=== PATIENT | female | born 1935 | race Caucasian/White ===

== ENCOUNTER → 2020-10-02 | Outpatient (CLI) | payer MEDICARE ==
[2020-10-02 11:20] LABS: BASO % 1 % (0-3); EOS # 0.6 x10^3/uL (0.0-0.7); EOS % 9 % (0-3); HEMATOCRIT 29.3 % (36.0-47.0); HEMOGLOBIN 9.7 g/dL (12.0-15.5); LYMPH # 0.4 x10^3/uL (1.0-4.8); LYMPH % 6 % (24-48); MEAN CORPUSCULAR HEMOGLOBIN 29 pg (25-35); MEAN CORPUSCULAR HGB CONC 33 g/dL (31-37); MEAN CORPUSCULAR VOLUME 89 fL (79-100); MONO # 0.5 x10^3/uL (0.0-1.1); MONO % 7 % (0-9); NEUT # 5.8 x10^3/uL (1.8-7.7); NEUT % 78 % (31-73); PLATELET COUNT 262 x10^3/uL (140-400); RED BLOOD COUNT 3.29 x10^6/uL (3.50-5.40); RED CELL DISTRIBUTION WIDTH 13.9 % (11.5-14.5); WHITE BLOOD COUNT 7.4 x10^3/uL (4.0-11.0)
[2020-10-02 11:31] LABS: CALCIUM 9.7 mg/dL (8.5-10.1); CREATININE 1.3 mg/dL (0.6-1.0); POTASSIUM 4.8 mmol/L (3.5-5.1)
== END ==
LOC: SPEC 10:50
PROVIDERS: ATTEND Family Medicine
DX: G20 Parkinson's disease (principal); I11.0 Hypertensive heart disease with heart failure; I50.9 Heart failure, unspecified
CPT/HCPCS: 36415; 80048; 85025

== ENCOUNTER → 2020-10-31 | Outpatient (CLI) | payer MEDICARE ==
[2020-10-31 13:24] LABS: BILIRUBIN,URINE NEGATIVE (NEG); CLARITY,URINE CLEAR; COLOR,URINE YELLOW; NITRITE,URINE NEGATIVE (NEG); PH,URINE 5.5 (<5.0-8.0); PROTEIN,URINE NEGATIVE (NEG-TRACE); UROBILINOGEN,URINE 0.2 mg/dL (0.2 mg/dL)
[2020-10-31 13:28] LABS: HYALINE CASTS, URINE FEW /HPF
[2020-10-31 13:29] LABS: BACTERIA,URINE 0 /HPF (0-FEW); WBC,URINE OCC /HPF (0-4)
== END ==
LOC: SPEC 13:04
PROVIDERS: ATTEND Family Medicine
DX: R41.0 Disorientation, unspecified (principal)
CPT/HCPCS: 81001

== ENCOUNTER → 2020-11-24 | Outpatient (CLI) | payer MEDICARE ==
[2020-11-24 08:34] LABS: BASO % 1 % (0-3); EOS # 0.3 x10^3/uL (0.0-0.7); EOS % 6 % (0-3); HEMATOCRIT 33.7 % (36.0-47.0); HEMOGLOBIN 11.2 g/dL (12.0-15.5); LYMPH # 0.4 x10^3/uL (1.0-4.8); LYMPH % 7 % (24-48); MEAN CORPUSCULAR HEMOGLOBIN 30 pg (25-35); MEAN CORPUSCULAR HGB CONC 33 g/dL (31-37); MEAN CORPUSCULAR VOLUME 89 fL (79-100); MONO # 0.6 x10^3/uL (0.0-1.1); MONO % 12 % (0-9); NEUT # 4.1 x10^3/uL (1.8-7.7); NEUT % 75 % (31-73); PLATELET COUNT 107 x10^3/uL (140-400); RED BLOOD COUNT 3.79 x10^6/uL (3.50-5.40); RED CELL DISTRIBUTION WIDTH 15.3 % (11.5-14.5); WHITE BLOOD COUNT 5.4 x10^3/uL (4.0-11.0)
[2020-11-24 08:42] LABS: CALCIUM 8.9 mg/dL (8.5-10.1); CREATININE 1.4 mg/dL (0.6-1.0); GFR 35.8; POTASSIUM 4.9 mmol/L (3.5-5.1)
== END ==
LOC: SPEC 08:21
PROVIDERS: ATTEND Family Medicine
DX: N18.30 Chronic kidney disease, stage 3 unspecified (principal); I10 Essential (primary) hypertension
CPT/HCPCS: 36415; 80048; 85025

== ENCOUNTER 2020-12-12 07:40 | Emergency (ER) | payer MEDICARE ==
[~2020-12-12] VITALS: Ht 162.6 cm; Wt 54.5 kg
--- NOTE | 2020-12-12 07:52 | PHYS DOC ---
General Adult EDM: Chief Complaint: MECHANICAL FALL HPI: HPI: Patient is a 85 year old female who [facility] after [facility] was found [facility] the [facility]. Nursing report that patient try to get out of her bed, was walking to the bathroom when she tripped and fell backward. Patient could not get up, complain of neck pain, back pain. Patient denies any chest pain, no abdominal pain, no nausea vomiting. Patient denies any extremity pain, no pelvic pain, no hip pain. Review of Systems: Review of Systems: Constitutional: Denies fever or chills. [] Eyes: Denies change in visual acuity. [] HENT: Denies nasal congestion or sore throat. [] Respiratory: Denies cough or shortness of breath. [] Cardiovascular: Denies chest pain or edema. [] GI: Denies abdominal pain, nausea, vomiting, bloody stools or diarrhea. [] : Denies dysuria. [] Musculoskeletal: Positive for back pain, no joint pain. Integument: Denies rash. [] Neurologic: Denies headache, focal weakness or sensory changes. [] Endocrine: Denies polyuria or polydipsia. [] Lymphatic: Denies swollen glands. [] Psychiatric: Denies depression or anxiety. [] Heart Score: C/O Chest Pain: N/A Risk Factors: Risk Factors: DM, Current or recent (<one month) smoker, HTN, HLP, family history of CAD, obesity. Risk Scores: Score 0 - 3: 2.5% MACE over next 6 weeks - Discharge Home Score 4 - 6: 20.3% MACE over next 6 weeks - Admit for Clinical Observation Score 7 - 10: 72.7% MACE over next 6 weeks - Early Invasive Strategies Physical Exam: PE: Constitutional: Well developed, well nourished, no acute distress, non-toxic appearance. [] HENT: Normocephalic, atraumatic, bilateral external ears normal, oropharynx moist, no oral exudates, nose normal. [] Eyes: PERRLA, EOMI, conjunctiva normal, no discharge. [] Neck: Normal range of motion, no tenderness, supple, no stridor. [] Cardiovascular:Heart rate regular rhythm, no murmur [] Lungs & Thorax: Bilateral breath sounds clear to auscultation [] Abdomen: Bowel sounds normal, soft, no tenderness, no masses, no pulsatile masses. [] Skin: Warm, dry, no erythema, no rash. [] Back: No tenderness, no CVA tenderness. No contusion to the back. Extremities: No tenderness, no cyanosis, no clubbing, ROM intact, no edema. Pelvis stable, nontender to palpation. Neurologic: Alert and oriented X 3, normal motor function, normal sensory function, no focal deficits noted. [] Psychologic: Affect normal, judgement normal, mood normal. [] EKG: EKG: [] Radiology/Procedures: Radiology/Procedures: [][facility] [address] [place], [place] [id number] IMAGING REPORT Signed PATIENT: VICTORIANO RG ACCOUNT: [id number] : 1935 LOCATION: ER AGE: 85 SEX: F EXAM STATUS: REG ER ORD. PHYSICIAN: MENDEZ MAHMOOD DO REASON: fell on buttock, suspected sacrum fracture PROCEDURE: CT PELVIS WO CONTRAST PQRS Compliance Statement: One or more of the following individualized dose reduction techniques were utilized for this examination: 1. Automated exposure control 2. Adjustment of the mA and/or kV according to patient size 3. Use of iterative reconstruction technique CT PELVIS WO Clinical Indication: Reason: fell on buttock, suspected sacrum fracture. Abnormal radiograph. Comparison: AP pelvis, earlier same day. TECHNIQUE: Helical CT imaging of the pelvis is performed without IV contrast. Findings: Diffuse demineralization decreases sensitivity. No acute sacral fracture is identified. The sacral iliac joints are symmetric, air in the joints. No diastasis of symphysis pubis. The hip joints are intact, moderate arthropathy. Please refer to separately dictated CT lumbar spine report for additional findings. 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 Probable fibroid near the fundus measures on the order of 6.8 cm. Consider outpatient pelvic ultrasound. Urinary bladder is normal. Question periurethral collagen injections. The rectum is moderately distended with stool. No wall thickening is seen. No pelvic free fluid. IMPRESSION: No acute pelvic fracture. Electronically signed by: Lars Howell MD (12/12/2020 10:30 AM) [id number] DICTATED and SIGNED BY: LARS HOWELL MD DATE: 12/12/20 [id number] [facility] [address] [place] [address] IMAGING REPORT Signed PATIENT: VICTORIANO RG ACCOUNT: [id number] : 1935 LOCATION: ER AGE: 85 SEX: F EXAM STATUS: PRE ER ORD. PHYSICIAN: MENDEZ MAHMOOD DO REASON: fell, head injury, neck pain, back pain PROCEDURE: CT HEAD AND CERVICAL SPINE WO CT HEAD AND C-SPINE WO Date: 12/12/2020 7:57 AM Clinical Indication: fell, head injury, neck pain, back pain Comparison: None. Technique: 5 mm axial tomographic images were obtained of the head without contrast. These were viewed on brain and bone windows. Noncontrast CT of the c ervical spine was performed. Sagittal and coronal reformats were performed and evaluated. One or more of the following dose reduction techniques were utilized: Automated exposure control (AEC), Adjustment of mA and/or kV according to patient size, Use of iterative reconstruction technique such as ASiR, CT scan done according to ALARA and image gently/image wisely HEAD FINDINGS: Mild generalized cerebral and cerebellar volume loss. Mild nonspecific periventricular hypoattenuation, most commonly seen with chronic small vessel ischemic disease. No intra- or extra-axial mass or fluid collection. No acute hemorrhage. The ventricles are normal in size, shape, and morphology. The hollis-white matter junction is normal. The basilar cisterns are patent. The visualized paranasal sinuses are normal. The visualized portions of the orbits and globes are normal. Opacification of the right mastoid air cells. No aggressive osseous lesion or fracture. CERVICAL SPINE FINDINGS: The cervical spine is normally aligned. No acute fracture. No aggressive lytic or blastic osseous lesions. Moderate multilevel degenerative disc space height loss. Multilevel mild spinal canal stenosis secondary to disc protrusions and marginal osteophytes. Multilevel moderate to severe neuroforaminal narrowing secondary to uncovertebral arthrosis. Multilevel moderate to severe facet arthrosis. Right thyroid 1.2 cm nodule, not requiring further evaluation based on size criteria. No cervical lymphadenopathy. Bilateral carotid atherosclerosis. The visualized aerodigestive tract is normal. The visualized portions of the lungs are clear. IMPRESSION: 1. No acute intracranial process. 2. No acute cervical spine fracture. Electronically signed by: Malik Santiago MD (12/12/2020 8:31 AM) [id number] DICTATED and SIGNED BY: MALIK SANTIAGO MD DATE: 12/12/20 [id number] [facility] [address] [place] [address] IMAGING REPORT Signed PATIENT: VICTORIANO RG ACCOUNT: [id number] : 1935 LOCATION: ER AGE: 85 SEX: F EXAM STATUS: PRE ER ORD. PHYSICIAN: MENDEZ MAHMOOD DO REASON: fell, head injury, neck pain, back pain PROCEDURE: CT LUMBAR SPINE WO CONTRAST CT LUMBAR SPINE WO Date: 12/12/2020 7:57 AM Indication: fell, head injury, neck pain, back pain / Spl. Instructions: / History: Comparison: None. Technique: Helical CT images of the lumbar spine were obtained without contrast. Coronal and sagittal reformatted images were also performed. One or more of the following dose reduction techniques were utilized: Automated exposure control (AEC), Adjustment of mA and/or kV according to patient size, Use of iterative reconstruction technique such as ASiR, CT scan done according to ALARA and image gently/image wisely. Findings: 4 mm anterolisthesis of L3-4. A millimeter anterolisthesis at L4-5. No acute fracture. Vertebral body heights are maintained without compression deformity. No aggressive lytic or blastic osseous lesion. Severe multilevel degenerative disc space height loss. Multilevel spinal canal stenosis secondary to multilevel disc bulging and facet arthrosis, severe at L2- 3, L3-4, L4-5. Multilevel moderate to severe neuroforaminal narrowing. Multilevel severe facet arthrosis. Partially visualized enlarged polylobulatar pelvic mass. The visualized abdominal aorta is normal caliber. IMPRESSION: 1. No acute osseous abnormality of the lumbar spine. 2. Advanced lumbar spondylosis with multilevel severe spinal canal stenosis. 3. Partially visualized enlarged polylobular pelvic mass, incompletely characterized but may represent myomatous uterus. Consider comparison with prior outside imaging or follow-up pelvic ultrasound. Electronically signed by: Malik Santiago MD (12/12/2020 8:39 AM) [id number] DICTATED and SIGNED BY: MALIK SANTIAGO MD DATE: 12/12/20 [id number] [facility] [address] [place] [address] IMAGING REPORT Signed PATIENT: VICTORIANO RG ACCOUNT: [id number] : 1935 LOCATION: ER AGE: 85 SEX: F EXAM STATUS: PRE ER ORD. PHYSICIAN: MENDEZ MAHMOOD DO REASON: fell, head injury, neck pain, back pain PROCEDURE: CT THORACIC SPINE WO CONTRAST CT THORACIC SPINE WO 12/12/2020 7:57 AM Indication: fell, head injury, neck pain, back pain / Spl. Instructions: / History: Comparison: None. Technique: CT imaging of the thoracic spine was performed without contrast. Coronal and sagittal reformatted images were performed. One or more of the following dose reduction techniques were utilized: Automated exposure control (AEC), Adjustment of mA and/or kV according to patient size, Use of iterative reconstruction technique such as ASiR, CT scan done according to ALARA and image gently/image wisely. Findings: The thoracic spine is normally aligned. No acute fracture. Vertebral body heights are maintained without compression deformity. Multilevel moderate degenerative disc height loss. Multilevel predominately mild spinal canal stenosis. No high-grade neural foraminal narrowing. No aggressive lytic or blastic osseous lesion. The visualized lungs are clear. No pleural effusion. The visualized thoracic aorta is normal caliber. Coronary artery atherosclerotic disease. Impression: No acute osseous abnormality of the thoracic spine. Electronically signed by: Malik Santiago MD (12/12/2020 8:41 AM) [id number] DICTATED and SIGNED BY: MALIK SANTIAGO MD DATE: 12/12/20 [id number] Course & Med Decision Making: Course & Med Decision Making Pertinent Labs and Imaging studies reviewed. (See chart for details) Patient is a 85-year-old female who was [facility]. CT scan her head, C-spine, thoracic and lumbar spine, pelvic did not show any acute problem. [facility]. Dragon Disclaimer: Dragon Disclaimer: This electronic medical record was generated, in whole or in part, using a voice recognition dictation system. Departure Departure Impression: Primary Impression: Back pain Additional Impression: Fall Disposition: 03 [facility]ILITY Condition: STABLE Referrals: WILEY RIOJAS MD (PCP) Patient Instructions: Back Pain, Adult, Fall Prevention and Home Safety MENDEZ MAHMOOD DO Dec 12, 2020 07:52
--- NOTE | 2020-12-12 08:10 | RAD ---
AP view of the pelvis Clinical indications: Fell on buttocks. Pain. FINDINGS: The hip joints are symmetric. There is a piece of cortical bone seen displaced superiorly f rom the upper right sacrum. This may represent a fracture. Therefore, recommend CT study of the pelvi s. No diastases is evident. No dislocation or lytic process is seen. IMPRESSION: Possible fracture of the upper right sacrum. Recommend CT study of the pelvis or further evaluation. Electronically signed by: Berto Leonardo MD (12/12/2020 8:08 AM) [id number]
--- NOTE | 2020-12-12 08:34 | RAD ---
CT HEAD AND C-SPINE WO Date: 12/12/2020 7:57 AM Clinical Indication: fell, head injury, neck pain, back pain Comparison: None. Technique: 5 mm axial tomographic images were obtained of the head without contrast. These were view ed on brain and bone windows. Noncontrast CT of the cervical spine was performed. Sagittal and jones l reformats were performed and evaluated. One or more of the following dose reduction techniques were utilized: Automated exposure control (AEC), Adjustment of mA and/or kV according to patient size, Us e of iterative reconstruction technique such as ASiR, CT scan done according to ALARA and image gentl y/image wisely HEAD FINDINGS: Mild generalized cerebral and cerebellar volume loss. Mild nonspecific periventricular hypoattenuatio n, most commonly seen with chronic small vessel ischemic disease. No intra- or extra-axial mass or fluid collection. No acute hemorrhage. The ventricles are normal in size, shape, and morphology. The hollis-white matter junction is normal. The basilar cisterns are paten t. The visualized paranasal sinuses are normal. The visualized portions of the orbits and globes are no rmal. Opacification of the right mastoid air cells. No aggressive osseous lesion or fracture. CERVICAL SPINE FINDINGS: The cervical spine is normally aligned. No acute fracture. No aggressive lytic or blastic osseous les ions. Moderate multilevel degenerative disc space height loss. Multilevel mild spinal canal stenosis second francisco javier to disc protrusions and marginal osteophytes. Multilevel moderate to severe neuroforaminal narrow ing secondary to uncovertebral arthrosis. Multilevel moderate to severe facet arthrosis. Right thyroid 1.2 cm nodule, not requiring further evaluation based on size criteria. No cervical lym phadenopathy. Bilateral carotid atherosclerosis. The visualized aerodigestive tract is normal. The visualized portions of the lungs are clear. IMPRESSION: 1. No acute intracranial process. 2. No acute cervical spine fracture. Electronically signed by: Jr Santiago MD (12/12/2020 8:31 AM) [id number]
--- NOTE | 2020-12-12 08:41 | RAD ---
CT LUMBAR SPINE WO Date: 12/12/2020 7:57 AM Indication: fell, head injury, neck pain, back pain / Spl. Instructions: / History: Comparison: None. Technique: Helical CT images of the lumbar spine were obtained without contrast. Coronal and sagitta l reformatted images were also performed. One or more of the following dose reduction techniques were utilized: Automated exposure control (AEC), Adjustment of mA and/or kV according to patient size, Us e of iterative reconstruction technique such as ASiR, CT scan done according to ALARA and image gentl y/image wisely. Findings: 4 mm anterolisthesis of L3-4. A millimeter anterolisthesis at L4-5. No acute fracture. Vertebral body heights are maintained without compression deformity. No aggressive lytic or blastic osseous lesion. Severe multilevel degenerative disc space height loss. Multilevel spinal canal stenosis secondary to multilevel disc bulging and facet arthrosis, severe at L2-3, L3-4, L4-5. Multilevel moderate to sever e neuroforaminal narrowing. Multilevel severe facet arthrosis. Partially visualized enlarged polylobulatar pelvic mass. The visualized abdominal aorta is normal cortney iber. IMPRESSION: 1. No acute osseous abnormality of the lumbar spine. 2. Advanced lumbar spondylosis with multilevel severe spinal canal stenosis. 3. Partially visualized enlarged polylobular pelvic mass, incompletely characterized but may represen t myomatous uterus. Consider comparison with prior outside imaging or follow-up pelvic ultrasound. Electronically signed by: Jr Santiago MD (12/12/2020 8:39 AM) [id number]
--- NOTE | 2020-12-12 08:44 | RAD ---
CT THORACIC SPINE WO 12/12/2020 7:57 AM Indication: fell, head injury, neck pain, back pain / Spl. Instructions: / History: Comparison: None. Technique: CT imaging of the thoracic spine was performed without contrast. Coronal and sagittal ref ormatted images were performed. One or more of the following dose reduction techniques were utilized: Automated exposure control (AEC), Adjustment of mA and/or kV according to patient size, Use of itera tive reconstruction technique such as ASiR, CT scan done according to ALARA and image gently/image wi sely. Findings: The thoracic spine is normally aligned. No acute fracture. Vertebral body heights are maintained with out compression deformity. Multilevel moderate degenerative disc height loss. Multilevel predominatel y mild spinal canal stenosis. No high-grade neural foraminal narrowing. No aggressive lytic or blasti c osseous lesion. The visualized lungs are clear. No pleural effusion. The visualized thoracic aorta is normal caliber. Coronary artery atherosclerotic disease. Impression: No acute osseous abnormality of the thoracic spine. Electronically signed by: Jr Santiago MD (12/12/2020 8:41 AM) [id number]
[2020-12-12 10:30] VITALS: BP 188/82
--- NOTE | 2020-12-12 10:32 | RAD ---
PQRS Compliance Statement: One or more of the following individualized dose reduction techniques were utilized for this examinat ion: 1. Automated exposure control 2. Adjustment of the mA and/or kV according to patient size 3. Use of iterative reconstruction technique CT PELVIS WO Clinical Indication: Reason: fell on buttock, suspected sacrum fracture. Abnormal radiograph. Comparison: AP pelvis, earlier same day. TECHNIQUE: Helical CT imaging of the pelvis is performed without IV contrast. Findings: Diffuse demineralization decreases sensitivity. No acute sacral fracture is identified. The sacral il iac joints are symmetric, air in the joints. No diastasis of symphysis pubis. The hip joints are inta ct, moderate arthropathy. Please refer to separately dictated CT lumbar spine report for additional f indings. 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 Probable fibroid near the fundus measures on the order of 6.8 cm. Consider outpatient pelvic ultrasound. Urinary bladder is normal. Question periurethral co llagen injections. The rectum is moderately distended with stool. No wall thickening is seen. No pelv ic free fluid. IMPRESSION: No acute pelvic fracture. Electronically signed by: Lars Howell MD (12/12/2020 10:30 AM) [id number]
== END 2020-12-12 11:21 | disposition home or self-care (01) ==
LOC: ER 07:40
DX: M54.9 Dorsalgia, unspecified (principal); M54.2 Cervicalgia; W01.0XXA Fall on same level from slipping, tripping and stumbling without subsequent striking against object, initial encounter; Y93.01 Activity, walking, marching and hiking; Y92.89 Other specified places as the place of occurrence of the external cause; Y99.8 Other external cause status
CPT/HCPCS: 70450; 72125; 72128; 72131; 72170; 72192; 99285-25

== ENCOUNTER → 2021-01-15 | Outpatient (CLI) | payer MEDICARE ==
[2021-01-15 18:02] LABS: BILIRUBIN,URINE NEGATIVE (NEG); CLARITY,URINE TURBID; COLOR,URINE YELLOW; NITRITE,URINE NEGATIVE (NEG); PROTEIN,URINE NEGATIVE (NEG-TRACE); UROBILINOGEN,URINE 0.2 mg/dL (0.2 mg/dL)
[2021-01-15 18:21] LABS: HYALINE CASTS, URINE MODERATE /HPF
[2021-01-15 18:24] LABS: BACTERIA,URINE 0 /HPF (0-FEW)
== END ==
LOC: SPEC 17:44
PROVIDERS: ATTEND Family Medicine
DX: R35.0 Frequency of micturition (principal); R41.0 Disorientation, unspecified
CPT/HCPCS: 81001

== ENCOUNTER → 2021-01-24 | Outpatient (CLI) | payer MEDICARE ==
[2021-01-24 14:08] LABS: CREATININE 1.5 mg/dL (0.6-1.0); GFR 33.1
[2021-01-26 14:27] LABS: ALBUM 3.6 g/dL (2.9-4.4); ALPHA 1 0.3 g/dL (0.0-0.4); ALPHA 2 0.8 g/dL (0.4-1.0); BETA 1.3 g/dL (0.7-1.3); SPEP AG RATIO 1.1 (0.7-1.7)
== END ==
LOC: SPEC 11:54
PROVIDERS: ATTEND Family Medicine
DX: I11.0 Hypertensive heart disease with heart failure (principal); I50.9 Heart failure, unspecified
CPT/HCPCS: 36415; 82306; 82565; 82607; 84165; 84520

== ENCOUNTER → 2021-03-23 | Outpatient (CLI) | payer MEDICARE ==
[2021-03-23 08:30] LABS: CALCIUM 9.6 mg/dL (8.5-10.1); CREATININE 1.4 mg/dL (0.6-1.0); GFR 35.8; POTASSIUM 4.6 mmol/L (3.5-5.1)
== END ==
LOC: ONCLAB 07:18
PROVIDERS: ATTEND Family Medicine
DX: N18.30 Chronic kidney disease, stage 3 unspecified (principal); L50.0 Allergic urticaria
CPT/HCPCS: 36415; 80048

== ENCOUNTER → 2021-08-08 | Outpatient (CLI) | payer MEDICARE | LOC: SPEC 08:17 | PROVIDERS: ATTEND Family Medicine | DX: I50.9 Heart failure, unspecified (principal); N18.30 Chronic kidney disease, stage 3 unspecified | CPT/HCPCS: 36415; 82607 ==

== ENCOUNTER → 2021-08-09 | Outpatient (CLI) | payer MEDICARE ==
[2021-08-09 09:08] LABS: BASO % 0 % (0-3); EOS # 0.4 x10^3/uL (0.0-0.7); EOS % 8 % (0-3); HEMATOCRIT 36.4 % (36.0-47.0); HEMOGLOBIN 11.6 g/dL (12.0-15.5); LYMPH # 0.5 x10^3/uL (1.0-4.8); LYMPH % 10 % (24-48); MEAN CORPUSCULAR HEMOGLOBIN 29 pg (25-35); MEAN CORPUSCULAR HGB CONC 32 g/dL (31-37); MEAN CORPUSCULAR VOLUME 91 fL (79-100); MONO # 0.5 x10^3/uL (0.0-1.1); MONO % 10 % (0-9); NEUT # 3.8 x10^3/uL (1.8-7.7); NEUT % 72 % (31-73); PLATELET COUNT 122 x10^3/uL (140-400); RED BLOOD COUNT 4.02 x10^6/uL (3.50-5.40); WHITE BLOOD COUNT 5.3 x10^3/uL (4.0-11.0)
[2021-08-09 09:25] LABS: CALCIUM 9.1 mg/dL (8.5-10.1); CREATININE 1.4 mg/dL (0.6-1.0); GFR 35.7; POTASSIUM 4.7 mmol/L (3.5-5.1)
== END ==
LOC: SPEC 05:19
PROVIDERS: ATTEND Family Medicine
DX: I10 Essential (primary) hypertension (principal)
CPT/HCPCS: 36415; 80048; 85025

== ENCOUNTER → 2021-08-11 | Outpatient (CLI) | payer MEDICARE | LOC: SPEC 10:19 | PROVIDERS: ATTEND Family Medicine | DX: I10 Essential (primary) hypertension (principal) | CPT/HCPCS: 87493 ==

== ENCOUNTER → 2021-08-13 | Outpatient (CLI) | payer MEDICARE | LOC: SPEC 11:47 | PROVIDERS: ATTEND Family Medicine | DX: L08.9 Local infection of the skin and subcutaneous tissue, unspecified (principal) | CPT/HCPCS: 87070 ==

== ENCOUNTER → 2021-08-21 | Outpatient (CLI) | payer MEDICARE ==
--- NOTE | 2021-08-21 16:52 | RAD ---
EXAM: RIGHT ELBOW 3 VIEWS. HISTORY: Right elbow pain, open wound. COMPARISON: None. FINDINGS: There is a soft tissue defect overlying the olecranon. There is a cortical erosion of the u nderlying bone consistent with acute osteomyelitis. There is a small joint effusion. No fractures are identified. Joint spaces and alignment are maintain ed. IMPRESSION: 1. Findings consistent with acute osteomyelitis along the olecranon. 2. Joint effusion. Electronically signed by: Ira Haley MD (08/21/2021 4:50 PM) [id number]
== END ==
LOC: RAD 11:21
PROVIDERS: ATTEND Nurse Practitioner Family
DX: S51.001A Unspecified open wound of right elbow, initial encounter (principal); M25.421 Effusion, right elbow; M86.9 Osteomyelitis, unspecified
CPT/HCPCS: 73080

== ENCOUNTER → 2021-08-21 | Outpatient (CLI) | payer MEDICARE ==
[~2021-08-21] MED LIST: ACET325T21 PO; APIX5TAB PO; BUSP5TAB PO; CALC600T23 PO; CARB1TAB22 PO; CEFTRIAXONE SODIUM IVP; CHOL10004 PO; DONE5TAB7 PO; LACT30003 PO; LATA2.5D2 OU; LIDO700A21 TP; MELA5TAB PO; MELO15TA23 PO; MIRA50TA3 PO; MULT-496 PO; SERT25TA PO
[2021-08-21 07:56] LABS: BASO % 1 % (0-3); EOS # 0.4 x10^3/uL (0.0-0.7); EOS % 5 % (0-3); HEMATOCRIT 35.2 % (36.0-47.0); HEMOGLOBIN 11.3 g/dL (12.0-15.5); LYMPH # 0.5 x10^3/uL (1.0-4.8); LYMPH % 8 % (24-48); MEAN CORPUSCULAR HEMOGLOBIN 29 pg (25-35); MEAN CORPUSCULAR HGB CONC 32 g/dL (31-37); MEAN CORPUSCULAR VOLUME 90 fL (79-100); MONO # 0.7 x10^3/uL (0.0-1.1); MONO % 10 % (0-9); NEUT # 5.5 x10^3/uL (1.8-7.7); NEUT % 77 % (31-73); PLATELET COUNT 168 x10^3/uL (140-400); RED BLOOD COUNT 3.92 x10^6/uL (3.50-5.40); RED CELL DISTRIBUTION WIDTH 14.8 % (11.5-14.5); WHITE BLOOD COUNT 7.2 x10^3/uL (4.0-11.0)
[2021-08-21 08:25] LABS: ALBUMIN 3.2 g/dL (3.4-5.0); ALBUMIN/GLOBULIN RATIO 0.8 (1.0-1.7); GFR 23.7; TOTAL BILIRUBIN 0.3 mg/dL (0.2-1.0); TOTAL PROTEIN 7.3 g/dL (6.4-8.2)
[2021-08-21 08:28] LABS: POTASSIUM 6.5 mmol/L (3.5-5.1)
== END ==
LOC: SPEC 01:56
PROVIDERS: ATTEND Family Medicine
DX: G30.9 Alzheimer's disease, unspecified (principal)
CPT/HCPCS: 36415; 80053; 85025; 85651

== ENCOUNTER → 2021-08-22 | Outpatient (CLI) | payer MEDICARE | LOC: SPEC 00:05 | PROVIDERS: ATTEND Family Medicine | DX: I10 Essential (primary) hypertension (principal) | CPT/HCPCS: 36415; 84132 ==

== ENCOUNTER 2021-08-25 07:19 | Inpatient (IN) | payer MEDICARE ==
[~2021-08-25] VITALS: Ht 165.1 cm; Wt 69.2 kg
[2021-08-25] MEDS ORDERED: cefTRIAXone IV Push 1 GM VIAL. IVP ONE (08:00)
[2021-08-25 08:48] LABS: BASO % 0 % (0-3); EOS # 0.5 x10^3/uL (0.0-0.7); EOS % 7 % (0-3); HEMATOCRIT 31.3 % (36.0-47.0); HEMOGLOBIN 10.3 g/dL (12.0-15.5); LYMPH # 0.3 x10^3/uL (1.0-4.8); LYMPH % 5 % (24-48); MEAN CORPUSCULAR HEMOGLOBIN 29 pg (25-35); MEAN CORPUSCULAR HGB CONC 33 g/dL (31-37); MEAN CORPUSCULAR VOLUME 89 fL (79-100); MONO # 0.6 x10^3/uL (0.0-1.1); MONO % 8 % (0-9); NEUT # 5.9 x10^3/uL (1.8-7.7); NEUT % 81 % (31-73); PLATELET COUNT 161 x10^3/uL (140-400); RED BLOOD COUNT 3.52 x10^6/uL (3.50-5.40); RED CELL DISTRIBUTION WIDTH 14.6 % (11.5-14.5); WHITE BLOOD COUNT 7.4 x10^3/uL (4.0-11.0)
[2021-08-25 08:50] LABS: BILIRUBIN,URINE NEGATIVE (NEG); CLARITY,URINE CLEAR; COLOR,URINE YELLOW; NITRITE,URINE NEGATIVE (NEG); PH,URINE 5.5 (<5.0-8.0); PROTEIN,URINE NEGATIVE (NEG-TRACE); UROBILINOGEN,URINE 0.2 mg/dL (0.2 mg/dL)
[2021-08-25 09:04] LABS: ALBUMIN 2.8 g/dL (3.4-5.0); ALBUMIN/GLOBULIN RATIO 0.8 (1.0-1.7); CALCIUM 8.6 mg/dL (8.5-10.1); CREATININE 1.4 mg/dL (0.6-1.0); GFR 35.7; TOTAL BILIRUBIN 0.2 mg/dL (0.2-1.0); TOTAL PROTEIN 6.5 g/dL (6.4-8.2)
[2021-08-25 09:07] LABS: BACTERIA,URINE 0 /HPF (0-FEW); WBC,URINE OCC /HPF (0-4)
[2021-08-25 09:10] LABS: POTASSIUM 6.3 mmol/L (3.5-5.1)
[2021-08-25] MEDS ORDERED: SODIUM BICARB ADULT 8.4% 50 MEQ/50 ML DISP.SYRIN. IV ONE (09:30)
[2021-08-25] MEDS ORDERED: INSULIN REGULAR 100 UNIT/ML 3ML VIAL. IV ONE (09:30)
[2021-08-25] MEDS ORDERED: DEXTROSE 50% 25 GM / 50ML DISP.SYRIN. IV ONE (09:30)
[2021-08-25] MEDS ORDERED: CALCIUM GLUCONATE 1,000 MG/10 ML VIAL. IVP ONE (09:30)
[2021-08-25] MEDS ORDERED: SODIUM POLYSTYRENE SULFON/SORB 15 GM/60 ML ORAL.SUSP. PO ONE (09:30)
--- NOTE | 2021-08-25 09:45 | PHYS DOC ---
Past Medical History Past Medical History: Anxiety, Arthritis, CHF, Depression, Hypertension, UTI Additional Past Medical Histor: OSTEOPORESIS, parkinsons,alzheimers, Past Surgical History: Other Additional Past Surgical Histo: UNKNOWN Smoking Status: Never Smoker Alcohol Use: None General Adult EDM: Chief Complaint: OTHER COMPLAINTS HPI: HPI: Patient is a 86 year old female who presents from [facility] facility with complaints of her left-sided PICC line no longer functioning. She has a PICC line for right olecranon osteomyelitis, and has been receiving c eftriaxone. Notes show that she has had hyperkalemia to 6.5, and OLGA to 2.0 on 08/21 laboratory check. Her Lasix were then held (assuming concern for overdiuresis), with a plan for recheck. Review of Systems: Review of Systems: Constitutional: Denies fever or chills. [] Eyes: Denies change in visual acuity. [] HENT: Denies nasal congestion or sore throat. [] Respiratory: Denies cough or shortness of breath. [] Cardiovascular: Denies chest pain or edema. [] GI: Denies abdominal pain, nausea, vomiting, bloody stools or diarrhea. [] : Denies dysuria. [] Musculoskeletal: Denies back pain or joint pain. [] Integument: Denies rash. [] Neurologic: Denies headache, focal weakness or sensory changes. [] Psychiatric: Denies depression or anxiety. [] Heart Score: C/O Chest Pain: No Current Medications: Current Medications Medications (Trade) Dose Ordered Sig/Zayda Start Time Stop Time Status Last Admin Dose Admin Calcium Gluconate (Calcium Gluconate) 1,000 mg 1X ONCE 08/25/21 09:30 08/25/21 09:31 DC Ceftriaxone Sodium (Rocephin) 1 gm 1X ONCE 08/25/21 08:00 08/25/21 08:01 DC 08/25/21 09:07 1 GM Dextrose (Dextrose 50%-Water Syringe) 25 gm 1X ONCE 08/25/21 09:30 08/25/21 09:31 DC Insulin Human Regular (HumuLIN R VIAL) 10 unit 1X ONCE 08/25/21 09:30 08/25/21 09:31 DC Sodium Polystyrene Sulfonate (Kayexalate) 30 gm 1X ONCE 08/25/21 09:30 08/25/21 09:31 DC Sodium Bicarbonate (Sodium Bicarb Adult 8.4% Syr) 50 meq 1X ONCE 08/25/21 09:30 08/25/21 09:31 DC Allergies: Allergies: Allergies Coded Allergies Type Severity Reaction Last Updated Verified I S O L A T I O N *CONTACT* Allergy Unknown 08/25/21 Yes Iodine and Iodide Containing Produc Allergy Unknown 08/25/21 Yes Physical Exam: PE: Constitutional: Well developed, well nourished, no acute distress, non-toxic appearance. [] HENT: Normocephalic, atraumatic, bilateral external ears normal, oropharynx moist, no oral exudates, nose normal. [] Eyes: PERRLA, EOMI, conjunctiva normal, no discharge. [] Neck: Normal range of motion, no tenderness, supple, no stridor. [] Cardiovascular:Heart rate regular rhythm, no murmur [] Lungs & Thorax: Bilateral breath sounds clear to auscultation [] Abdomen: Bowel sounds normal, soft, no tenderness, no masses, no pulsatile masses. [] Skin: Left upper extremity PICC line in place, bleeding present under the bandage. Does not flush. Extremities: No tenderness, no cyanosis, no clubbing, ROM intact, no edema. [] Neurologic: Alert and oriented X 3, normal motor function, normal sensory function, no focal deficits noted. [] Psychologic: Affect normal, judgement normal, mood normal. [] Current Patient Data: Labs: Laboratory Tests Test 08/25/21 08:25 08/25/21 08:35 White Blood Count 7.4 x10^3/uL (4.0-11.0) Red Blood Count 3.52 x10^6/uL (3.50-5.40) Hemoglobin 10.3 g/dL (12.0-15.5) L Hematocrit 31.3 % (36.0-47.0) L Mean Corpuscular Volume 89 fL (79-100) Mean Corpuscular Hemoglobin 29 pg (25-35) Mean Corpuscular Hemoglobin Concent 33 g/dL (31-37) Red Cell Distribution Width 14.6 % (11.5-14.5) H Platelet Count 161 x10^3/uL (140-400) Neutrophils (%) (Auto) 81 % (31-73) H Lymphocytes (%) (Auto) 5 % (24-48) L Monocytes (%) (Auto) 8 % (0-9) Eosinophils (%) (Auto) 7 % (0-3) H Basophils (%) (Auto) 0 % (0-3) Neutrophils # (Auto) 5.9 x10^3/uL (1.8-7.7) Lymphocytes # (Auto) 0.3 x10^3/uL (1.0-4.8) L Monocytes # (Auto) 0.6 x10^3/uL (0.0-1.1) Eosinophils # (Auto) 0.5 x10^3/uL (0.0-0.7) Basophils # (Auto) 0.0 x10^3/uL (0.0-0.2) Platelet Estimate Pending Sodium Level 142 mmol/L (136-145) Potassium Level 6.3 mmol/L (3.5-5.1) *H Chloride Level 111 mmol/L (98-107) H Carbon Dioxide Level 21 mmol/L (21-32) Anion Gap 10 (6-14) Blood Urea Nitrogen 29 mg/dL (7-20) H Creatinine 1.4 mg/dL (0.6-1.0) H Estimated GFR (Cockcroft-Gault) 35.7 BUN/Creatinine Ratio 21 (6-20) H Glucose Level 79 mg/dL (70-99) Calcium Level 8.6 mg/dL (8.5-10.1) Total Bilirubin 0.2 mg/dL (0.2-1.0) Aspartate Amino Transferase (AST) 26 U/L (15-37) Alanine Aminotransferase (ALT) 14 U/L (14-59) Alkaline Phosphatase 84 U/L (46-116) Creatine Kinase 57 U/L (26-192) C-Reactive Protein, Quantitative 31.0 mg/L (0-3.3) H Total Protein 6.5 g/dL (6.4-8.2) Albumin 2.8 g/dL (3.4-5.0) L Albumin/Globulin Ratio 0.8 (1.0-1.7) L Urine Collection Type U cath Urine Color Yellow Urine Clarity Clear Urine pH 5.5 (<5.0-8.0) Urine Specific [place] 1.010 (1.000-1.030) Urine Protein Negative mg/dL (NEG-TRACE) Urine Glucose (UA) Negative mg/dL (NEG) Urine Ketones (Stick) Negative mg/dL (NEG) Urine Blood Moderate (NEG) Urine Nitrite Negative (NEG) Urine Bilirubin Negative (NEG) Urine Urobilinogen Dipstick 0.2 mg/dL (0.2 mg/dL) Urine Leukocyte Esterase Negative (NEG) Urine RBC 6-10 /HPF (0-2) Urine WBC Occ /HPF (0-4) Urine Squamous Epithelial Cells Many /LPF Urine Bacteria 0 /HPF (0-FEW) Laboratory Tests 08/25/21 08:25 Laboratory Tests 08/25/21 08:25 Vital Signs: Vital Signs Date Time Temp Pulse Resp B/P (MAP) Pulse Ox O2 Delivery O2 Flow Rate FiO2 08/25/21 09:09 71 20 183/79 (113) 100 Room Air 08/25/21 07:29 98.0 98.0 EKG: EKG: [] Radiology/Procedures: Radiology/Procedures: [id number] ultrasound concerning for left upper extremity DVT surrounding PICC line. Official US study ordered for confirmation [] Course & Med Decision Making: Course & Med Decision Making Pertinent Labs and Imaging studies reviewed. (See chart for details) Patient is an 86-year-old female who presents from a nursing facility for PICC line malfunction. [id number] ultrasound shows concern for DVT surrounding PICC line. Official ultrasound study ordered for confirmation, however aircraft engine technician was unable to complete it immediately. Labs also show hyperkalemia to 6.3, creatinine 1.4 (improved from 6.5 and 2.0, respectively since 08/21) Given calcium, bicarb, dextrose, insulin. Will be admitted to telemetry for further monitoring and consideration of longer term vascular access. Dragon Disclaimer: Dragon Disclaimer: This electronic medical record was generated, in whole or in part, using a voice recognition dictation system. Departure Departure Impression: Primary Impression: Hyperkalemia Additional Impressions: OLGA (acute kidney injury) Need for intravenous access Osteomyelitis Disposition: ADMITTED INPATIENT Admitting Physician: KEZIA Carranza) Condition: STABLE Referrals: WILEY RIOJAS MD (PCP) JEANNA MULLINS MD Aug 25, 2021 09:45
--- NOTE | 2021-08-25 10:34 | PDOC1 ---
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 Patient also also incidentally found to have hyperkalemia. In the ED she was given insulin, Kayexalate, and calcium. No acute ST changes. Patient is pleasantly confused. Past Medical/Surgical History: PMH/PSH: Past Medical History: Anxiety, Arthritis, CHF, Depression, Hypertension, UTIOSTEOPORESIS, parkinsons,alzheimers, Past Surgical History: UNKNOWN Allergies: Allergies: Coded Allergies: I S O L A T I O N *CONTACT* (Verified Allergy, Unknown, 08/25/21) mrsa Iodine and Iodide Containing Produc (Verified Allergy, Unknown, 08/25/21) Family History: Family History: Reviewed with no relevant findings Social History: Social History: Smoking Status: Never Smoker Alcohol Use: None Current Medications: Current Medications Current Medications Ceftriaxone Sodium (Rocephin) 1 gm 1X ONCE IVP Last administered on 08/25/21at 09:07; Start 08/25/21 at 08:00; Stop 08/25/21 at 08:01; Status DC Calcium Gluconate (Calcium Gluconate) 1,000 mg 1X ONCE IVP Last administered on 08/25/21at 09:42; Start 08/25/21 at 09:30; Stop 08/25/21 at 09:31; Status DC Sodium Bicarbonate (Sodium Bicarb Adult 8.4% Syr) 50 meq 1X ONCE IV Last administered on 08/25/21at 09:57; Start 08/25/21 at 09:30; Stop 08/25/21 at 09:31; Status DC Dextrose (Dextrose 50%-Water Syringe) 25 gm 1X ONCE IV Last administered on 08/25/21at 10:00; Start 08/25/21 at 09:30; Stop 08/25/21 at 09:31; Status DC Insulin Human Regular (HumuLIN R VIAL) 10 unit 1X ONCE IV Last administered on 08/25/21at 10:04; Start 08/25/21 at 09:30; Stop 08/25/21 at 09:31; Status DC Sodium Polystyrene Sulfonate (Kayexalate) 30 gm 1X ONCE PO Last administered on 08/25/21at 10:05; Start 08/25/21 at 09:30; Stop 08/25/21 at 09:31; Status DC ROS: Review of Systems Review of System Unable to obtain due to dementia Physical Exam: Vital Signs: Vital Signs Date Time Temp Pulse Resp B/P (MAP) Pulse Ox O2 Delivery O2 Flow Rate FiO2 08/25/21 10:08 76 20 184/84 (117) 99 Room Air 08/25/21 07:29 98.0 98.0 Physcial Exam: General: Well developed, well nourished, no acute distress, well appearing HEENT: Pupils equally round and reactive to light, EOMI, no discharge, normal conjunctiva Neck: Supple, no nuchal rigidity, no JVD, trachea midline, no tenderness Cardiac: RRR, no murmurs, no gallops, no rubs Chest/Lungs: CTAB, no wheeze, no rhonchi, no crackles Abdomen: soft, non-distended, no guarding, no peritoneal signs, non-tender Back: No tenderness Extremities: no edema, pulses intact, non-tender,capillary refill <3 sec bilateral upper and lower extremities, Neuro: Alert and oriented x 4, no focal deficits, normal speech Labs: Labs: Laboratory Tests Test 08/25/21 08:25 08/25/21 08:35 White Blood Count 7.4 x10^3/uL (4.0-11.0) Red Blood Count 3.52 x10^6/uL (3.50-5.40) Hemoglobin 10.3 g/dL (12.0-15.5) Hematocrit 31.3 % (36.0-47.0) Mean Corpuscular Volume 89 fL (79-100) Mean Corpuscular Hemoglobin 29 pg (25-35) Mean Corpuscular Hemoglobin Concent 33 g/dL (31-37) Red Cell Distribution Width 14.6 % (11.5-14.5) Platelet Count 161 x10^3/uL (140-400) Neutrophils (%) (Auto) 81 % (31-73) Lymphocytes (%) (Auto) 5 % (24-48) Monocytes (%) (Auto) 8 % (0-9) Eosinophils (%) (Auto) 7 % (0-3) Basophils (%) (Auto) 0 % (0-3) Neutrophils # (Auto) 5.9 x10^3/uL (1.8-7.7) Lymphocytes # (Auto) 0.3 x10^3/uL (1.0-4.8) Monocytes # (Auto) 0.6 x10^3/uL (0.0-1.1) Eosinophils # (Auto) 0.5 x10^3/uL (0.0-0.7) Basophils # (Auto) 0.0 x10^3/uL (0.0-0.2) Erythrocyte Sedimentation Rate 65 (0-25) Sodium Level 142 mmol/L (136-145) Potassium Level 6.3 mmol/L (3.5-5.1) Chloride Level 111 mmol/L (98-107) Carbon Dioxide Level 21 mmol/L (21-32) Anion Gap 10 (6-14) Blood Urea Nitrogen 29 mg/dL (7-20) Creatinine 1.4 mg/dL (0.6-1.0) Estimated GFR (Cockcroft-Gault) 35.7 BUN/Creatinine Ratio 21 (6-20) Glucose Level 79 mg/dL (70-99) Calcium Level 8.6 mg/dL (8.5-10.1) Total Bilirubin 0.2 mg/dL (0.2-1.0) Aspartate Amino Transf (AST/SGOT) 26 U/L (15-37) Alanine Aminotransferase (ALT/SGPT) 14 U/L (14-59) Alkaline Phosphatase 84 U/L (46-116) Creatine Kinase 57 U/L (26-192) C-Reactive Protein, Quantitative 31.0 mg/L (0-3.3) Total Protein 6.5 g/dL (6.4-8.2) Albumin 2.8 g/dL (3.4-5.0) Albumin/Globulin Ratio 0.8 (1.0-1.7) Urine Collection Type U cath Urine Color Yellow Urine Clarity Clear Urine pH 5.5 (<5.0-8.0) Urine Specific [place] 1.010 (1.000-1.030) Urine Protein Negative mg/dL (NEG-TRACE) Urine Glucose (UA) Negative mg/dL (NEG) Urine Ketones (Stick) Negative mg/dL (NEG) Urine Blood Moderate (NEG) Urine Nitrite Negative (NEG) Urine Bilirubin Negative (NEG) Urine Urobilinogen Dipstick 0.2 mg/dL (0.2 mg/dL) Urine Leukocyte Esterase Negative (NEG) Urine RBC 6-10 /HPF (0-2) Urine WBC Occ /HPF (0-4) Urine Squamous Epithelial Cells Many /LPF Urine Bacteria 0 /HPF (0-FEW) Laboratory Tests Test 08/25/21 08:25 08/25/21 08:35 White Blood Count 7.4 x10^3/uL (4.0-11.0) Red Blood Count 3.52 x10^6/uL (3.50-5.40) Hemoglobin 10.3 g/dL (12.0-15.5) Hematocrit 31.3 % (36.0-47.0) Mean Corpuscular Volume 89 fL (79-100) Mean Corpuscular Hemoglobin 29 pg (25-35) Mean Corpuscular Hemoglobin Concent 33 g/dL (31-37) Red Cell Distribution Width 14.6 % (11.5-14.5) Platelet Count 161 x10^3/uL (140-400) Neutrophils (%) (Auto) 81 % (31-73) Lymphocytes (%) (Auto) 5 % (24-48) Monocytes (%) (Auto) 8 % (0-9) Eosinophils (%) (Auto) 7 % (0-3) Basophils (%) (Auto) 0 % (0-3) Neutrophils # (Auto) 5.9 x10^3/uL (1.8-7.7) Lymphocytes # (Auto) 0.3 x10^3/uL (1.0-4.8) Monocytes # (Auto) 0.6 x10^3/uL (0.0-1.1) Eosinophils # (Auto) 0.5 x10^3/uL (0.0-0.7) Basophils # (Auto) 0.0 x10^3/uL (0.0-0.2) Erythrocyte Sedimentation Rate 65 (0-25) Sodium Level 142 mmol/L (136-145) Potassium Level 6.3 mmol/L (3.5-5.1) Chloride Level 111 mmol/L (98-107) Carbon Dioxide Level 21 mmol/L (21-32) Anion Gap 10 (6-14) Blood Urea Nitrogen 29 mg/dL (7-20) Creatinine 1.4 mg/dL (0.6-1.0) Estimated GFR (Cockcroft-Gault) 35.7 BUN/Creatinine Ratio 21 (6-20) Glucose Level 79 mg/dL (70-99) Calcium Level 8.6 mg/dL (8.5-10.1) Total Bilirubin 0.2 mg/dL (0.2-1.0) Aspartate Amino Transf (AST/SGOT) 26 U/L (15-37) Alanine Aminotransferase (ALT/SGPT) 14 U/L (14-59) Alkaline Phosphatase 84 U/L (46-116) Creatine Kinase 57 U/L (26-192) C-Reactive Protein, Quantitative 31.0 mg/L (0-3.3) Total Protein 6.5 g/dL (6.4-8.2) Albumin 2.8 g/dL (3.4-5.0) Albumin/Globulin Ratio 0.8 (1.0-1.7) Urine Collection Type U cath Urine Color Yellow Urine Clarity Clear Urine pH 5.5 (<5.0-8.0) Urine Specific [place] 1.010 (1.000-1.030) Urine Protein Negative mg/dL (NEG-TRACE) Urine Glucose (UA) Negative mg/dL (NEG) Urine Ketones (Stick) Negative mg/dL (NEG) Urine Blood Moderate (NEG) Urine Nitrite Negative (NEG) Urine Bilirubin Negative (NEG) Urine Urobilinogen Dipstick 0.2 mg/dL (0.2 mg/dL) Urine Leukocyte Esterase Negative (NEG) Urine RBC 6-10 /HPF (0-2) Urine WBC Occ /HPF (0-4) Urine Squamous Epithelial Cells Many /LPF Urine Bacteria 0 /HPF (0-FEW) Images: Images Pending DVT ultrasound Assessment/Plan Assessment/Plan Upper extremity DVT near PICC line placement Right elbow osteomyelitis currently on IV antibiotics Hyperkalemia Chronic kidney disease Admit to hospitalist service for further management Pending ultrasound Continue IV Rocephin Pending repeat blood cultures Pending BMP and trend potassium May start heparin drip if positive for DVT for DVT prophylaxis Protonix GI prophylaxis Cardiac diet CODE STATUS full Discussed with RN and SW Disposition inpatient management as above DPOA: Alma Delia Flores Justifications for Admission Other Justification WOLFGANG ROSS MD Aug 25, 2021 10:34
[2021-08-25 11:00] VITALS: BP 176/76
[2021-08-25 11:24] LABS: % BANDS 1 % (0-9); % EOS 9 % (0-5); % LYMPHS 4 % (24-48); % MONOS 5 % (0-10); % SEGS 81 % (35-66)
[2021-08-25 11:25] LABS: PLT ESTIMATE ADEQUATE (ADEQUATE)
[2021-08-25] MEDS ORDERED: MELO15TA23 PO (12:41)
[2021-08-25] MEDS ORDERED: LACT30003 PO (12:41)
[2021-08-25] MEDS ORDERED: CHOL10004 PO (12:41)
[2021-08-25] MEDS ORDERED: ACET325T21 PO (12:41)
[2021-08-25] MEDS ORDERED: CALC600T23 PO (12:41)
[2021-08-25] MEDS ORDERED: MELA5TAB PO (12:41)
[2021-08-25] MEDS ORDERED: SERT25TA PO (12:41)
[2021-08-25] MEDS ORDERED: LATA2.5D2 OU (12:41)
[2021-08-25] MEDS ORDERED: CARB1TAB22 PO (12:41)
[2021-08-25] MEDS ORDERED: LIDO700A21 TP (12:41)
[2021-08-25] MEDS ORDERED: BUSP5TAB PO (12:41)
[2021-08-25] MEDS ORDERED: MULT-496 PO (12:41)
[2021-08-25] MEDS ORDERED: MIRA50TA3 PO (12:41)
[2021-08-25] MEDS ORDERED: DONE5TAB7 PO (12:41)
[2021-08-25] MEDS ORDERED: PROCHLORPERAZINE 10 MG/2 ML VIAL. IV PRN (13:30)
[2021-08-25] MEDS ORDERED: LORazepam 0.5 MG TABLET PO PRN (13:30)
[2021-08-25] MEDS ORDERED: ONDANSETRON PF 4 MG/2 ML VIAL. IVP PRN (13:30)
[2021-08-25] MEDS ORDERED: diphenhydrAMINE HCL 25 MG CAPSULE PO PRN ×2 (13:30)
[2021-08-25] MEDS ORDERED: ZOLPIDEM 5 MG TABLET. PO PRN (13:30)
[2021-08-25] MEDS ORDERED: SENNOSIDES 8.6 MG TABLET PO PRN (13:30)
[2021-08-25] MEDS ORDERED: diphenhydrAMINE 50 MG/ML VIAL IVP PRN (13:30)
[2021-08-25] MEDS ORDERED: DEXTROSE 50% 25 GM / 50ML DISP.SYRIN. IV PRN (13:30)
[2021-08-25] MEDS ORDERED: DOCUSATE SODIUM 100 MG CAPSULE. PO PRN (13:30)
[2021-08-25] MEDS ORDERED: ACETAMINOPHEN 325 MG TABLET. PO PRN (13:30)
[2021-08-25] MEDS: MULTIVITAMIN with MINERAL TABLET. PO SCH (13:46)
[2021-08-25] MEDS: SERTRALINE 25 MG TABLET. PO SCH (13:46)
[2021-08-25] MEDS: busPIRone 5 MG TABLET. PO SCH ×2 (13:46→20:44)
[2021-08-25] MEDS: CALCIUM CARBONATE 500 MG TABLET PO SCH (13:46)
[2021-08-25] MEDS: MELOXICAM 7.5 MG TABLET PO SCH (13:46)
[2021-08-25] MEDS: CARBIDOPA/LEVODOPA 25/100MG TABLET PO SCH ×3 (13:46→20:44)
[2021-08-25] MEDS: MIRABEGRON 25 MG TAB.ER.24H PO SCH (13:46)
[2021-08-25] MEDS: LIDOCAINE (700MG/PATCH) PATCH. TP SCH (13:47)
[2021-08-25 15:00] VITALS: BP 164/72
[2021-08-25] MEDS ORDERED: LACTASE 3000 UNIT PO SCH (16:30)
[2021-08-25 16:36] LABS: CALCIUM 8.5 mg/dL (8.5-10.1); CREATININE 1.4 mg/dL (0.6-1.0); GFR 35.7; MAGNESIUM 2.3 mg/dL (1.8-2.4); POTASSIUM 5.7 mmol/L (3.5-5.1)
--- NOTE | 2021-08-25 17:48 | RAD ---
EXAMINATION: US DPLX VENOUS EXTREMITY UPPER LT INDICATION: Reason: picc line not working / Spl. Instructions: / History: COMPARISON: None TECHNIQUE: Grayscale, color and spectral doppler evaluation of the left upper extremity venous system (s) was performed. FINDINGS: Left upper extremity PICC noted with associated partially occlusive thrombus within the brachial vein . There is normally directed flow with normal waveforms in the left internal jugular, brachiocephalic, subclavian and axillary veins. Normal flow is present in the upper arm cephalic, radial, ulnar, and basilic veins. IMPRESSION: Partially occlusive thrombus surrounding the left upper extremity PICC in the brachial vein. These findings were discussed with the patient's nurse Yiama at 08/25/2021 5:[address] Bourne Electronically signed by: Lennox Bourne DO (08/25/2021 5:45 PM) [facility]
[2021-08-25 19:05] VITALS: BP 144/66
--- NOTE | 2021-08-25 19:57 | EKG ---
[facility] [address] [place] [address] Test Date: 2021-08-25 Test Time: 09:35:56 Pat Name: VICTORIANO RG Department: Room: [facility] Gender: F Party Host: : [id number] Requested By: JEANNA MULLINS Order Number: [id number] Reading MD: Willem Salgado Measurements Intervals [place] Rate: 66 P: -24 OK: 168 QRS: -22 QRSD: 86 T: 45 QT: 354 QTc: 373 Interpretive Statements SINUS RHYTHM LEFTWARD AXIS Electronically Signed On 08-26-2021 10:13:21 CHILD AND FAMILY COUNSELOR by Willem Salgado
[2021-08-25] MEDS: APIXABAN 5 MG TABLET. PO SCH (20:44)
[2021-08-25] MEDS: PATCH REMOVAL. MC SCH (20:46)
[2021-08-25] MEDS: LATANOPROST 0.005% OPHTH SOLUTION 2.5ML BOTTLE. OU SCH (20:46)
[2021-08-25 23:20] VITALS: BP 147/67
[2021-08-26] VITALS (7 sets, daily range): BP systolic 143–219; BP diastolic 67–93
[2021-08-26 05:11] LABS: BASO % 0 % (0-3); EOS # 0.4 x10^3/uL (0.0-0.7); EOS % 7 % (0-3); HEMATOCRIT 27.7 % (36.0-47.0); HEMOGLOBIN 9.4 g/dL (12.0-15.5); LYMPH # 0.4 x10^3/uL (1.0-4.8); LYMPH % 6 % (24-48); MEAN CORPUSCULAR HEMOGLOBIN 30 pg (25-35); MEAN CORPUSCULAR HGB CONC 34 g/dL (31-37); MEAN CORPUSCULAR VOLUME 89 fL (79-100); MONO # 0.8 x10^3/uL (0.0-1.1); MONO % 12 % (0-9); NEUT # 5.1 x10^3/uL (1.8-7.7); NEUT % 75 % (31-73); PLATELET COUNT 146 x10^3/uL (140-400); RED CELL DISTRIBUTION WIDTH 14.4 % (11.5-14.5); WHITE BLOOD COUNT 6.8 x10^3/uL (4.0-11.0)
[2021-08-26 05:55] LABS: CREATININE 1.4 mg/dL (0.6-1.0); GFR 35.7; MAGNESIUM 2.1 mg/dL (1.8-2.4); PHOSPHORUS 4.1 mg/dL (2.6-4.7); POTASSIUM 4.3 mmol/L (3.5-5.1)
[2021-08-26] MEDS: CALCIUM CARBONATE 500 MG TABLET PO SCH (09:29)
[2021-08-26] MEDS: MULTIVITAMIN with MINERAL TABLET. PO SCH (09:29)
[2021-08-26] MEDS: SERTRALINE 25 MG TABLET. PO SCH (09:30)
[2021-08-26] MEDS: APIXABAN 5 MG TABLET. PO SCH ×2 (09:30→21:15)
[2021-08-26] MEDS: busPIRone 5 MG TABLET. PO SCH ×3 (09:30→21:15)
[2021-08-26] MEDS: MELOXICAM 7.5 MG TABLET PO SCH (09:31)
[2021-08-26] MEDS: MIRABEGRON 25 MG TAB.ER.24H PO SCH (09:31)
[2021-08-26] MEDS: CARBIDOPA/LEVODOPA 25/100MG TABLET PO SCH ×4 (09:31→21:15)
[2021-08-26] MEDS: cefTRIAXone IV Push 1 GM VIAL. IVP SCH (09:32)
[2021-08-26] MEDS: LIDOCAINE (700MG/PATCH) PATCH. TP SCH (09:32)
--- NOTE | 2021-08-26 12:06 | PDOC ---
[employer] PROGRESS NOTE Date of Service DOS: DATE: 08/26/21 TIME: 12:04 Chief Complaint Chief Complaint Upper extremity DVT near PICC line placement Right elbow osteomyelitis currently on IV antibiotics Hyperkalemia Chronic kidney disease Pending removal and replacement of midline PICC Continue IV Rocephin Pending repeat blood cultures Pending BMP and trend potassium May start heparin drip if positive for DVT for DVT prophylaxis Protonix GI prophylaxis Cardiac diet CODE STATUS full Discussed with RN and SW Disposition inpatient management as above DPOA: Alma Delia Flores History of Present Illness History of Present Illness 86-year-old female with past medical history of CHF, depression, hypertension, Parkinson's disease, Alzheimer's dementia, 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 Patient also also incidentally found to have hyperkalemia. In the ED she was given insulin, Kayexalate, and calcium. No acute ST changes. Patient is pleasantly confused. 08/26/2021 No acute events overnight. Afebrile and VSS. Patient seen and examined on recliner. Patient is doing well. I have ordered for the midline to be removed and replaced. Patient started on Eliquis. She will need to continue this for at least 3 months after discharge. No concerns from nursing at this time. Patient's chart, labs, images were reviewed and discussed with RN continue with IV antibiotics. Vitals/I&O Vitals/I&O: Vital Signs Date Time Temp Pulse Resp B/P (MAP) Pulse Ox O2 Delivery O2 Flow Rate FiO2 08/26/21 07:00 98.7 84 20 184/87 (119) 99 Room Air 98.7 I & O 08/25/21 08/25/21 08/26/21 15:00 23:00 07:00 Intake Total 120 ml 180 ml Balance 120 ml 180 ml Physical Exam General: Alert, Oriented X3, Cooperative Heart: Regular rate Lungs: Clear Abdomen: Normal bowel sounds Extremities: No clubbing Skin: No rashes Labs Labs: Laboratory Tests Test 08/25/21 15:40 08/26/21 04:15 Sodium Level 144 mmol/L (136-145) 143 mmol/L (136-145) Potassium Level 5.7 mmol/L (3.5-5.1) 4.3 mmol/L (3.5-5.1) Chloride Level 112 mmol/L (98-107) 108 mmol/L (98-107) Carbon Dioxide Level 21 mmol/L (21-32) 22 mmol/L (21-32) Anion Gap 11 (6-14) 13 (6-14) Blood Urea Nitrogen 26 mg/dL (7-20) 25 mg/dL (7-20) Creatinine 1.4 mg/dL (0.6-1.0) 1.4 mg/dL (0.6-1.0) Estimated GFR (Cockcroft-Gault) 35.7 35.7 Glucose Level 142 mg/dL (70-99) 69 mg/dL (70-99) Calcium Level 8.5 mg/dL (8.5-10.1) 8.0 mg/dL (8.5-10.1) Magnesium Level 2.3 mg/dL (1.8-2.4) 2.1 mg/dL (1.8-2.4) White Blood Count 6.8 x10^3/uL (4.0-11.0) Red Blood Count 3.10 x10^6/uL (3.50-5.40) Hemoglobin 9.4 g/dL (12.0-15.5) Hematocrit 27.7 % (36.0-47.0) Mean Corpuscular Volume 89 fL (79-100) Mean Corpuscular Hemoglobin 30 pg (25-35) Mean Corpuscular Hemoglobin Concent 34 g/dL (31-37) Red Cell Distribution Width 14.4 % (11.5-14.5) Platelet Count 146 x10^3/uL (140-400) Neutrophils (%) (Auto) 75 % (31-73) Lymphocytes (%) (Auto) 6 % (24-48) Monocytes (%) (Auto) 12 % (0-9) Eosinophils (%) (Auto) 7 % (0-3) Basophils (%) (Auto) 0 % (0-3) Neutrophils # (Auto) 5.1 x10^3/uL (1.8-7.7) Lymphocytes # (Auto) 0.4 x10^3/uL (1.0-4.8) Monocytes # (Auto) 0.8 x10^3/uL (0.0-1.1) Eosinophils # (Auto) 0.4 x10^3/uL (0.0-0.7) Basophils # (Auto) 0.0 x10^3/uL (0.0-0.2) Phosphorus Level 4.1 mg/dL (2.6-4.7) Assessment and Plan Assessmemt and Plan Problems Medical Problems: (1) OLGA (acute kidney injury) Status: Acute (2) Hyperkalemia Status: Acute (3) Need for intravenous access Status: Acute (4) Osteomyelitis Status: Acute Comment Review of Relevant I have reviewed the following items dena (where applicable) has been applied. Medications: Current Medications Medications (Trade) Dose Ordered Sig/Zayda Route PRN Reason Start Time Stop Time Status Last Admin Dose Admin Buspirone HCl (Buspar) 5 mg TID PO 08/25/21 14:00 08/26/21 09:30 Carbidopa/Levodopa (Sinemet 25/100) 1 tab QID PO 08/25/21 13:00 08/26/21 09:31 Latanoprost (Xalatan) 1 drop QHS OU 08/25/21 21:00 08/25/21 20:46 Lidocaine (Lidoderm) 1 patch DAILY TP 08/25/21 14:00 08/26/21 09:32 Sertraline HCl (Zoloft) 25 mg DAILY PO 08/25/21 14:00 08/26/21 09:30 Calcium Carbonate/ Glycine (Oscal) 1,000 mg DAILY PO 08/25/21 14:00 08/26/21 09:29 Meloxicam (Mobic) 15 mg DAILY PO 08/25/21 14:00 08/26/21 09:31 Mirabegron (Myrbetriq) 50 mg DAILY PO 08/25/21 14:00 08/26/21 09:31 Multivitamins (Thera M Plus) 1 tab DAILY PO 08/25/21 14:00 08/26/21 09:29 Ceftriaxone Sodium (Rocephin) 1 gm Q24H IVP 08/26/21 09:00 08/26/21 09:32 Acetaminophen (Tylenol) 650 mg PRN Q4HRS PRN PO TEMP OVER 100.4F OR MILD PAIN 08/25/21 13:30 08/25/21 22:09 Miscellaneous ([facility]oderm [facility]) [facility] 08/25/21 21:00 08/25/21 20:46 Apixaban (Eliquis) 10 mg BID PO 08/25/21 21:00 09/01/21 09:01 08/26/21 09:30 Justifications for Admission Other Justification Hyperkalemia and PICC line malfunction WOLFGANG ROSS MD Aug 26, 2021 12:06
[2021-08-26] MEDS ORDERED: LABETALOL 20 MG/4 ML DISP.SYRIN. IVP PRN (15:00)
[2021-08-26] MEDS: PATCH REMOVAL. MC SCH (21:00)
[2021-08-26] MEDS: LATANOPROST 0.005% OPHTH SOLUTION 2.5ML BOTTLE. OU SCH (21:15)
[2021-08-26] MEDS: LACTOBACILLUS RHAMNOSUS GG 1 CAPSULE. PO SCH (21:15)
[2021-08-27 03:00] VITALS: BP 164/98
[2021-08-27 05:10] LABS: BASO % 0 % (0-3); EOS # 0.3 x10^3/uL (0.0-0.7); EOS % 4 % (0-3); HEMATOCRIT 32.4 % (36.0-47.0); HEMOGLOBIN 10.7 g/dL (12.0-15.5); LYMPH # 0.5 x10^3/uL (1.0-4.8); LYMPH % 6 % (24-48); MEAN CORPUSCULAR HEMOGLOBIN 30 pg (25-35); MEAN CORPUSCULAR HGB CONC 33 g/dL (31-37); MEAN CORPUSCULAR VOLUME 89 fL (79-100); MONO # 0.7 x10^3/uL (0.0-1.1); MONO % 9 % (0-9); NEUT # 6.6 x10^3/uL (1.8-7.7); NEUT % 80 % (31-73); PLATELET COUNT 157 x10^3/uL (140-400); RED BLOOD COUNT 3.63 x10^6/uL (3.50-5.40); RED CELL DISTRIBUTION WIDTH 14.9 % (11.5-14.5); WHITE BLOOD COUNT 8.2 x10^3/uL (4.0-11.0)
[2021-08-27 05:27] LABS: CALCIUM 8.2 mg/dL (8.5-10.1); CREATININE 1.2 mg/dL (0.6-1.0); GFR 42.7; MAGNESIUM 2.1 mg/dL (1.8-2.4); POTASSIUM 4.2 mmol/L (3.5-5.1)
[2021-08-27 07:00] VITALS: BP 161/77
[2021-08-27] MEDS: LIDOCAINE (700MG/PATCH) PATCH. TP SCH (08:40)
[2021-08-27] MEDS: MIRABEGRON 25 MG TAB.ER.24H PO SCH (08:41)
[2021-08-27] MEDS: busPIRone 5 MG TABLET. PO SCH ×2 (08:41→12:21)
[2021-08-27] MEDS: CALCIUM CARBONATE 500 MG TABLET PO SCH (08:42)
[2021-08-27] MEDS: MELOXICAM 7.5 MG TABLET PO SCH (08:42)
[2021-08-27] MEDS: APIXABAN 5 MG TABLET. PO SCH (08:42)
[2021-08-27] MEDS: cefTRIAXone IV Push 1 GM VIAL. IVP SCH (08:42)
[2021-08-27] MEDS: CARBIDOPA/LEVODOPA 25/100MG TABLET PO SCH ×2 (08:42→12:22)
[2021-08-27] MEDS: SERTRALINE 25 MG TABLET. PO SCH (08:42)
[2021-08-27] MEDS: LACTOBACILLUS RHAMNOSUS GG 1 CAPSULE. PO SCH (08:43)
[2021-08-27] MEDS: MULTIVITAMIN with MINERAL TABLET. PO SCH (08:43)
[2021-08-27] MEDS ORDERED: CEFTRIAXONE SODIUM IVP (09:52)
--- NOTE | 2021-08-27 09:53 | SNU/HH DC ---
DISCHARGE ORDERS DISCHARGE INFORMATION: DISCHARGE DATE: Aug 27, 2021 FINAL DIAGNOSIS Problems Medical Problems: (1) OLGA (acute kidney injury) Status: Acute (2) Hyperkalemia Status: Acute (3) Need for intravenous access Status: Acute (4) Osteomyelitis Status: Acute CONDITION ON DISCHARGE: Stable CODE STATUS: Code Status: Full MCC: SNF STAY <30 DAYS: Yes POST DISCHARGE ORDERS: ACTIVITY ORDERS: Resume previous activity WEIGHT BEARING STATUS: Full weight bearing DIET AFTER DISCHARGE: Cardiac FOLLOW-UP: PHYSICIAN FOLLOW-UP: PCP within 2 weeks of discharge TREATMENT/EQUIPMENT ORDERS: Physical Therapy For: Evalulation/Treatment Occupational Therapy For: Evaluation/Treatment DISCHARGE MEDICATIONS: Home Meds Active Scripts [cefTRIAXone IV Push] 1 GM VIAL No Conflict Check, 1 GM IVP Q24H for osteomyelitis for 30 Days, #30 EACH Prov:WOLFGANG ROSS MD 08/27/21 Reported Medications Cholecalciferol (Vitamin D3) (Vitamin D3 ) 25 Mcg Tablet, 25 MCG PO DAILY for SUPPLEMENT, TAB 1,000 UNITS = 25 MCG 08/25/21 Sertraline Hcl (ZOLOFT) 25 Mg Tablet, 25 MG PO DAILY for ANTI-DEPRESSANT, TAB 0 Refills 08/25/21 Mirabegron (Myrbetriq) 50 Mg Tab.er.24h, 50 MG PO DAILY for bladder control, TAB.SR 08/25/21 Multivitamin (DAILY VALUE) 1 Each Tablet, 1 TAB PO DAILY for wound healing for 30 Days, #30 TAB 0 Refills 08/25/21 Meloxicam (MELOXICAM) 15 Mg Tablet, 15 MG PO DAILY for pain, TAB 08/25/21 Melatonin (MELATONIN) 5 Mg Tablet, 6 MG PO HS for insomnia, TAB 08/25/21 Lidocaine (Lidocaine PATCH ) 1 Each Adh..patch, 1 EACH TP BID for Back Pain, PATCH REMOVE AFTER 12 HOURS 08/25/21 Latanoprost (XALATAN) 2.5 Ml Drops, 1 DROP OU QHS for GLAUCOMA, ML 08/25/21 Lactase (LACTASE) 3,000 Unit Tablet, 3000 UNIT PO TIDAC for digestive aid, TAB 08/25/21 Donepezil Hcl (DONEPEZIL HCL) 5 Mg Tablet, 5 MG PO HS for dementia, TAB 08/25/21 Carbidopa/Levodopa (CARBIDOPA-LEVODOPA 25-100 TAB) 1 Each Tablet, 1 TAB PO QID for parkinsons for 30 Days, #120 TAB 0 Refills 08/25/21 Calcium Carbonate (CALCIUM CARBONATE) 600 Mg Tablet, 1200 MG PO DAILY for supplement, TAB 08/25/21 Buspirone Hcl (BUSPIRONE HCL) 5 Mg Tablet, 5 MG PO TID for depression, TAB 08/25/21 Acetaminophen (ACETAMINOPHEN) 325 Mg Tablet, 650 MG PO PRN Q4HRS PRN for PAIN, TAB 08/25/21 WOLFGANG ROSS MD Aug 27, 2021 09:53
[2021-08-27] MEDS ORDERED: APIX5TAB PO (09:56)
[2021-08-27 11:00] VITALS: BP 199/95
[2021-08-27 12:36] VITALS: BP 188/86
--- NOTE | 2021-08-27 12:43 | NUR ---
SS following for discharge planning. SS reviewed pt chart and discussed with pt RN. Pt is LTC resident from [facility], ; fax [phone], and is currently on room air. PICC being placed today. Discharge orders on the chart. SS phoned and faxed discharge orders and clinical to [facility]. Pt will discharge today and return to [facility] at 1500 via [facility]. Pt, pt's RN, and pt's family notified. SS will continue to follow for discharge planning.
[2021-08-27] MEDS ORDERED: LIDOCAINE WITH 8.4% SOD BICARB 3 ML DISP.SYRIN. ONE (12:56)
[2021-08-27] MEDS ORDERED: LIDOCAINE WITH 8.4% SOD BICARB 3 ML DISP.SYRIN. INJ ONE (13:15)
--- NOTE | 2021-08-28 09:50 | RAD ---
Placement of left upper extremity midline with a PICC line 08/27/2021 Consent: The procedure was explained in its entirety to the patient or the patients designated repres entative by a member of the treatment team, including a discussion of the risks, benefits and commonl y accepted alternatives to the procedure, as well as the expected consequences of no therapy whatsoev er. Discussion of the risks included, but was not limited to, those that are most frequent and thos e that are rare but possibly severe or life-threatening, as well as the possibility of unforeseen com plications. Left upper extremity including the pre-existing midline draped using maximum sterile barrier techniqu e. 1% lidocaine was administered for local anesthesia. A guidewire was advanced through the pre-exist ing catheter into the IVC. A new 5 [place] PICC line was trimmed length and inserted over the guidewir e such that the tip is in the cavoatrial junction. The new catheter was found to flush and aspirate n ormally. No immediate complications were identified. Sterile dressings were applied. Total fluoroscopy time: 1.0 minutes Dose area product 1 Oleary centimeter squared IMPRESSION: Replacement of left upper extremity midline with left upper extremity PICC line under flu oroscopy Electronically signed by: Ankush Phelps MD (08/28/2021 9:48 AM) [id number]
[2021-09-01] MEDS ORDERED: APIXABAN 5 MG TABLET. PO SCH (21:00)
== END 2021-08-27 15:30 | DRG 300 ==
LOC: ER 07:19 → 6 SOUTH 09:50
PROVIDERS: ADMIT Internal Medicine; ATTEND Internal Medicine
PROC: 06PYX3Z Removal of Infusion Device from Lower Vein, External Approach (ICD-10-PCS; principal; 2021-08-27)
PROC: 02HV33Z Insertion of Infusion Device into Superior Vena Cava, Percutaneous Approach (ICD-10-PCS; 2021-08-27)
PROC: B5181ZA Fluoroscopy of Superior Vena Cava using Low Osmolar Contrast, Guidance (ICD-10-PCS; 2021-08-27)
DX: I82.622 Acute embolism and thrombosis of deep veins of left upper extremity (principal); I13.0 Hypertensive heart and chronic kidney disease with heart failure and stage 1 through stage 4 chronic kidney disease, or unspecified chronic kidney disease; N17.9 Acute kidney failure, unspecified; M86.8X4 Other osteomyelitis, hand; E87.5 Hyperkalemia; F02.80 Dementia in other diseases classified elsewhere, unspecified severity, without behavioral disturbance, psychotic disturbance, mood disturbance, and anxiety; G20 Parkinson's disease; G30.9 Alzheimer's disease, unspecified; I50.9 Heart failure, unspecified; N18.9 Chronic kidney disease, unspecified; F32.A Depression, unspecified; F41.9 Anxiety disorder, unspecified; M19.90 Unspecified osteoarthritis, unspecified site; Z87.440 Personal history of urinary (tract) infections; Z88.8 Allergy status to other drugs, medicaments and biological substances; Z91.011 Allergy to milk products
CPT/HCPCS: 36415; 36584; 80048; 80053; 81001; 82550; 83735; 84100; 84132; 85007; 85025; 85651; 86140; 87040; 93005; 93971; 96374; 96375; C1751; J0610; J0696; J1815; J3490; 97530-GO; 97530-GP; 97535-GO; 99285-25; G0378

== ENCOUNTER → 2021-10-10 | Outpatient (CLI) | payer MEDICARE ==
--- NOTE | 2021-10-10 13:39 | RAD ---
EXAM: Left upper extremity venous Doppler sonogram. HISTORY: Upper extremity venous thrombosis. TECHNIQUE: Oleary scale and color Doppler sonographic evaluation of the left upper extremity veins with spectral waveform analysis was performed. FINDINGS: There is chronic appearing nonocclusive thrombus within the brachial vein. The previously d emonstrated axillary venous thrombosis is resolved. There is normal color flow, normal compressibilit y and there are normal spectral waveforms in the remainder of the upper extremity veins. IMPRESSION: Chronic appearing nonocclusive brachial venous thrombosis. This was described on a sonogram performed 08/25/2021. Electronically signed by: Maria Ines Figueroa MD (10/10/2021 1:36 PM) [id number]
== END ==
LOC: US 12:15
PROVIDERS: ATTEND Family Medicine
DX: I82.622 Acute embolism and thrombosis of deep veins of left upper extremity (principal); Z86.718 Personal history of other venous thrombosis and embolism
CPT/HCPCS: 93971

== ENCOUNTER → 2021-11-05 | Outpatient (CLI) | payer MEDICARE ==
[2021-11-05 06:08] LABS: BASO % 1 % (0-3); EOS # 0.3 x10^3/uL (0.0-0.7); EOS % 6 % (0-3); HEMATOCRIT 32.7 % (36.0-47.0); HEMOGLOBIN 10.5 g/dL (12.0-15.5); LYMPH # 0.5 x10^3/uL (1.0-4.8); LYMPH % 10 % (24-48); MEAN CORPUSCULAR HEMOGLOBIN 28 pg (25-35); MEAN CORPUSCULAR HGB CONC 32 g/dL (31-37); MEAN CORPUSCULAR VOLUME 88 fL (79-100); MONO # 0.7 x10^3/uL (0.0-1.1); MONO % 14 % (0-9); NEUT # 3.6 x10^3/uL (1.8-7.7); NEUT % 69 % (31-73); PLATELET COUNT 198 x10^3/uL (140-400); RED CELL DISTRIBUTION WIDTH 14.9 % (11.5-14.5); WHITE BLOOD COUNT 5.2 x10^3/uL (4.0-11.0)
== END ==
LOC: SPEC
PROVIDERS: ATTEND Family Medicine
DX: D64.9 Anemia, unspecified (principal)
CPT/HCPCS: 36415; 82728; 83540; 83550; 85025

== ENCOUNTER → 2021-11-06 | Outpatient (CLI) | payer MEDICARE ==
[2021-11-06 15:07] LABS: COLOR,URINE AMBER
[2021-11-06 15:08] LABS: BILIRUBIN,URINE SMALL (NEG); CLARITY,URINE HAZY; NITRITE,URINE POSITIVE (NEG); PROTEIN,URINE >=300 mg/dL (NEG-TRACE)
[2021-11-06 15:13] LABS: BACTERIA,URINE FEW /HPF (0-FEW); RBC,URINE TNTC /HPF (0-2)
== END ==
LOC: SPEC 14:31
PROVIDERS: ATTEND Family Medicine
DX: R14.0 Abdominal distension (gaseous) (principal)
CPT/HCPCS: 81001; 87077; 87086; 87186

== ENCOUNTER → 2021-11-28 | Outpatient (CLI) | payer MEDICARE ==
[2021-11-28 10:51] LABS: CALCIUM 8.7 mg/dL (8.5-10.1); CREATININE 1.5 mg/dL (0.6-1.0); POTASSIUM 5.5 mmol/L (3.5-5.1)
== END ==
LOC: SPEC 10:32
PROVIDERS: ATTEND Family Medicine
DX: I50.9 Heart failure, unspecified (principal)
CPT/HCPCS: 36415; 80048

== ENCOUNTER → 2021-12-05 | Outpatient (CLI) | payer MEDICARE ==
[2021-12-05 09:03] LABS: CALCIUM 8.9 mg/dL (8.5-10.1); CREATININE 1.8 mg/dL (0.6-1.0); GFR 26.7; POTASSIUM 4.8 mmol/L (3.5-5.1)
== END ==
LOC: SPEC 00:01
PROVIDERS: ATTEND Family Medicine
DX: I50.9 Heart failure, unspecified (principal)
CPT/HCPCS: 36415; 80048